=== PATIENT | male | born 1960 | race Caucasian/White ===

== ENCOUNTER 2018-11-16 10:45 | Outpatient (RCR) | payer OTHER ==
[~2018-11-16] VITALS: Ht 175.3 cm; Wt 110.7 kg
[2018-11-19] MEDS ORDERED: Lidocaine 4% Top Soln 50ml TOPIC ONE (16:15)
== END 2018-12-06 | disposition home or self-care (01) ==
LOC: WCC 10:45
DX: L97.814 Non-pressure chronic ulcer of other part of right lower leg with necrosis of bone (principal); I87.2 Venous insufficiency (chronic) (peripheral); M86.361 Chronic multifocal osteomyelitis, right tibia and fibula; Z96.659 Presence of unspecified artificial knee joint; M19.90 Unspecified osteoarthritis, unspecified site; E11.9 Type 2 diabetes mellitus without complications; I10 Essential (primary) hypertension; Z79.82 Long term (current) use of aspirin; Z79.899 Other long term (current) drug therapy
CPT/HCPCS: 11044; 87070; 87205